=== PATIENT | male | born 1935 | race Caucasian/White ===

== ENCOUNTER 2021-10-27 11:39 | Inpatient (IN) | payer MEDICARE ==
[~2021-10-27] VITALS: Ht 177.8 cm; Wt 76.3 kg
[2021-10-27 14:20] LABS: BASOPHILS ABSOLUTE AUTO 0.04 K/mm3 (0.00-0.23); BASOPHILS PERCENT AUTO 1 % (0-2); EOSINOPHILS ABSOLUTE AUTO 0.53 K/mm3 (0.00-0.68); EOSINOPHILS PERCENT AUTO 7 % (0-6); Hematocrit 48.4 % (37.0-53.0); Hemoglobin 15.8 g/dL (13.5-17.5); IMMATURE GRAN ABSOLUTE AUTO 0.03 K/mm3 (0.00-0.10); IMMATURE GRAN PERCENT AUTO 0 % (0-1); LYMPHOCYTES ABSOLUTE AUTO 0.74 K/mm3 (0.84-5.20); LYMPHOCYTES PERCENT AUTO 9 % (21-46); MONOCYTES ABSOLUTE AUTO 0.42 K/mm3 (0.16-1.47); MONOCYTES PERCENT AUTO 5 % (4-13); Mean Corpuscular HGB 31.8 pg (26.0-34.0); Mean Corpuscular HGB Conc 32.6 g/dL (31.5-36.5); Mean Corpuscular Volume 97 fL (80-100); Mean Platelet Volume 10.7 fL (9.1-12.4); NEUTROPHILS ABSOLUTE AUTO 6.21 K/mm3 (1.96-9.15); NEUTROPHILS PERCENT AUTO 78 % (41-73); Platelet Count 99 K/mm3 (150-400); RDW Standard Deviation 50.7 fL (35.1-46.3); Red Blood Cell Count 4.97 M/mm3 (4.30-5.90); White Blood Cell Count 7.97 K/mm3 (4.00-11.30)
[2021-10-27 15:04] LABS: Calcium, Blood 8.3 mg/dL (8.5-10.1); Creatinine, Blood 1.74 mg/dL (0.60-1.20); Potassium, Blood 4.7 mmol/L (3.5-5.5)
[2021-10-27 18:24] LABS: International Normalized Ratio 1.14; Prothrombin Time Results 11.9 Sec (9.7-11.5)
--- NOTE | 2021-10-28 04:40 | NUR ---
SHIFT SUMMARY PT ADMITTED FOR L HIP FX, AOX4. NPO SINCE MIDNIGHT FOR POSSIBLE SURGERY TODAY. DENIES N/T, N/V. DENIES PAIN/ NEED FOR PAIN MEDICATION. REPSOITIONED THROUGHOUT SHIFT. FLUIDS INFUSING, USES URINAL AT BEDSIDE. MEPILEX PLACED ON R HIP FOR PROTECTION OF REDDENED SKIN ABRASION. VSS, CALL LIGHT IN REACH. WILL REPORT OFF TO DAY RN.
[2021-10-28 08:34] LABS: Influenza A, PCR NEGATIVE (NEGATIVE); Influenza B, PCR NEGATIVE (NEGATIVE); Resp Syncytial Virus, PCR NEGATIVE (NEGATIVE); SARS-Cov-2 (COVID-19) PCR, MMC NEGATIVE (NEGATIVE)
--- NOTE | 2021-10-28 11:31 | NUR ---
PATIENT LEFT FOR OR.
--- NOTE | 2021-10-28 17:51 | NUR ---
SHIFT SUMMARY: POD 0 LEFT HIP PINNING PATIENT IS A&OX4. VS ARE WNL AND IS ON 2L NC. PATIENT DENIES PAIN AT THIS TIME. HE HAS ONE AQUACEL TO THE LEFT HIP THAT IS C/D/I. HE CAN MOVE HIS FINGERS AND TOES WHEN ASKED. DENIES NUMBNESS AND TINGLING. HE TOLERATED A SMALL SIP OF WATER AND IS BACK ASLEEP. FAMILY IN THE ROOM AT BEDSIDE. CALL LIGHT WITHIN REACH. THE PLAN IS TO WORK WITH PT/OT TOMORROW AND CONTINUE PAIN MANAGEMENT.
[2021-10-29 05:31] LABS: BASOPHILS ABSOLUTE AUTO 0.01 K/mm3 (0.00-0.23); BASOPHILS PERCENT AUTO 0 % (0-2); EOSINOPHILS ABSOLUTE AUTO 0.02 K/mm3 (0.00-0.68); EOSINOPHILS PERCENT AUTO 0 % (0-6); Hematocrit 39.1 % (37.0-53.0); Hemoglobin 13.1 g/dL (13.5-17.5); IMMATURE GRAN ABSOLUTE AUTO 0.04 K/mm3 (0.00-0.10); IMMATURE GRAN PERCENT AUTO 1 % (0-1); LYMPHOCYTES ABSOLUTE AUTO 0.72 K/mm3 (0.84-5.20); LYMPHOCYTES PERCENT AUTO 11 % (21-46); MONOCYTES ABSOLUTE AUTO 0.67 K/mm3 (0.16-1.47); MONOCYTES PERCENT AUTO 10 % (4-13); Mean Corpuscular HGB 32.7 pg (26.0-34.0); Mean Corpuscular HGB Conc 33.5 g/dL (31.5-36.5); Mean Corpuscular Volume 98 fL (80-100); Mean Platelet Volume 11.4 fL (9.1-12.4); NEUTROPHILS ABSOLUTE AUTO 5.17 K/mm3 (1.96-9.15); NEUTROPHILS PERCENT AUTO 78 % (41-73); Platelet Count 95 K/mm3 (150-400); RDW Coefficient Variation 13.9 % (11.7-14.2); RDW Standard Deviation 50.3 fL (35.1-46.3); Red Blood Cell Count 4.01 M/mm3 (4.30-5.90); White Blood Cell Count 6.63 K/mm3 (4.00-11.30)
[2021-10-29 06:14] LABS: Albumin, Blood 2.7 g/dL (3.4-5.0); Albumin/Globulin Ratio 0.8 (0.8-1.8); Bilirubin, Total 0.7 mg/dL (0.1-1.0); Bun/Creatinine Ratio 23.3 (12.0-20.0); Calcium, Blood 7.9 mg/dL (8.5-10.1); Creatinine, Blood 0.99 mg/dL (0.60-1.20); Globulin, Blood 3.2 g/dL (2.2-4.0); Potassium, Blood 4.5 mmol/L (3.5-5.5); Thyroid Stimulating Hormone 1.16 uIU/mL (0.360-4.800); Total Protein, Blood 5.9 g/dL (6.4-8.2)
--- NOTE | 2021-10-29 06:16 | NUR ---
SUMMARY PT HAD NO COMPLAINTS OF DISCOMFORT. PT HAS BEEN EATING AND VOIDING WELL. PT HAS BEEN MAINTAINING NWB ON LEFT LEG AND USING A URINAL TO VOID. PT DRESSING INS CDI. PT SLEPT AND IS IN GOOD SPIRITS. CALL LIGHT IN REACH.
--- NOTE | 2021-10-29 16:46 | NUR ---
SEE DOWNTIME CHARTING FOR DC PAPERWORK
== END 2021-10-29 15:44 | disposition home health service (06) | DRG 956 ==
LOC: ER 11:39 → SURS 14:49 → ER 14:49 → SURS 15:22
PROVIDERS: Internal Medicine; Orthopaedic Surgery; Student in an Organized Health Care Education/Training Program; ADMIT Internal Medicine
PROC: 0QS734Z Reposition Left Upper Femur with Internal Fixation Device, Percutaneous Approach (ICD-10-PCS; principal; 2021-10-28 14:30)
DX: S72.002A Fracture of unspecified part of neck of left femur, initial encounter for closed fracture (principal); T79.6XXA Traumatic ischemia of muscle, initial encounter; N17.9 Acute kidney failure, unspecified; Z20.822 Contact with and (suspected) exposure to COVID-19; E78.00 Pure hypercholesterolemia, unspecified; D64.9 Anemia, unspecified; Z98.890 Other specified postprocedural states; W18.30XA Fall on same level, unspecified, initial encounter
CPT/HCPCS: 0241U; 36415; 73503; 73700; 80048; 80053; 82550; 82553; 84443; 85025; 85610; 85730; 93005; 93010; 96360; 97110; 97112; 97116; 97161; 97166; 97530; 97535; 99285-25; A9270; C1713; C1769; J0690; J1100; J2370; J2405; J2704; J2795; J3010; J7030; J7040; J7120

== ENCOUNTER 2025-01-03 10:04 | Day surgery (SDC) | payer OTHER ==
[~2025-01-03] VITALS: Ht 188 cm; Wt 76.6 kg
[~2025-01-03 10:04] MED LIST: CEFP200 PO; Triamcinolone Inj Susp 40 MG / ML 1ML Vial ONE
[2025-01-03] MEDS ORDERED: Povidone-Iodine 450 DROP/30 ML Solution XX ONE (11:32)
[2025-01-03] MEDS ORDERED: BSS PLUS/EPINEPHRINE IRRIGATION SOLUTION 500 ML IR ONE (11:32)
[2025-01-03] MEDS ORDERED: Moxifloxacin HCL 0.5 MG/0.1 ML 0.4MLSYR XX ONE (11:32)
[2025-01-03] MEDS ORDERED: Tetracaine HCl 0.5% Opth Soln 15 ml XX ONE (11:32)
--- NOTE | 2025-01-03 11:39 | NUR ---
01/03/25 [id number] Petey Garcia N 187/105 100% 10L BLOW BY O2 59 16
[2025-01-03 11:56] VITALS: BP 174/98
--- NOTE | 2025-01-03 11:58 | NUR ---
01/03/25 [id number] POLINA CAI BROUGHT BACK TO GO OVER DC INSTRUCTIONS.
== END 2025-01-03 12:13 | disposition home or self-care (01) ==
LOC: ORSCSDS 10:04
PROVIDERS: Ophthalmology
PROC: 08RJ3JZ Replacement of Right Lens with Synthetic Substitute, Percutaneous Approach (ICD-10-PCS; principal; 2025-01-03 11:30)
DX: H25.811 Combined forms of age-related cataract, right eye (principal); Z96.1 Presence of intraocular lens; I10 Essential (primary) hypertension
CPT/HCPCS: A9270; J2003; J3301; V2632